=== PATIENT | female | born 1960 | race Caucasian/White ===

== ENCOUNTER 2017-02-17 20:07 | Emergency (ER) | payer MEDICAID ==
[2017-02-17 20:28] VITALS: BP 161/90; PULSE 71; RESP 17; TEMP 98.4; O2SAT 97
--- NOTE | 2017-02-17 20:39 | ED PDOC ---
Arrival/HPI - General Chief Complaint: Lower Extremity Problem/Injury Time Seen by Provider: 02/17/17 20:32 Historian: Patient - History of Present Illness Narrative History of Present Illness (Text): 02/17/17 20:57 Patient reports injuring her R 1st great toe yesterday and presents today to the ER because the nail has fallen off, reports no other complaints or injuries. Otherwise: (-) other injury, (-) numbness, (-) redness, (-) swelling. Past Medical History - Provider Review Nursing Documentation Reviewed: Yes - Reproductive Menopause: Yes - Cardiac Hx Hypertension: Yes - Pulmonary Hx Respiratory Disorders: No - Neurological HX Cerebrovascular Accident: Yes - HEENT Hx HEENT Disorder: No - Renal Hx Renal Disorder: No - Endocrine/Metabolic Hx Diabetes Mellitus Type 2: Yes - Hematological/Oncological Hx Blood Disorders: No - Integumentary Hx Dermatological Disorder: No - Musculoskeletal/Rheumatological Hx Musculoskeletal Disorders: Yes Other/Comment: RESIDUAL WEAKNESS L SIDE - Gastrointestinal Hx Constipation: Yes - Genitourinary/Gynecological Hx Genitourinary Disorders: No - Psychiatric Hx Psychophysiologic Disorder: No Hx Substance Use: No - Surgical History Hx Open Heart Surgery: Yes Family/Social History - Physician Review Nursing Documentation Reviewed: Yes Family/Social History: No Known Family HX Smoking Status: Never Smoked Hx Alcohol Use: No Hx Substance Use: No Allergies/Home Meds Allergies/Adverse Reactions: Allergies No Known Allergies Allergy (Verified 02/17/17 20:20) Home Medications: Home Meds Medication Instructions Recorded Confirmed Warfarin [Coumadin] 6 mg PO DAILY 02/17/17 02/17/17 Review of Systems - Review of Systems Constitutional: Normal. absent: Fatigue, Weight Change, Fevers Musculoskeletal: Normal, Arthralgias. absent: Back Pain, Neck Pain Skin: Normal. absent: Rash, Pruritis, Skin Lesions Physical Exam - Physical Exam Narrative Physical Exam (Text): 02/17/17 20:55 GENERAL APPEARANCE: Patient is awake, alert, oriented x 3, in no acute distress. SKIN: Warm, dry, (-) skin leasions or rashes. LOWER EXTREMITY: (-) Tenderness, (-) swelling, (-) erythema, (-) ecchymosis, (+ ) complete nail avulsion, (-) crepitus, (-) deformity. Tendon function intact. (-) distal neurovascular deficit. + 2 point discrimination. Remainder of foot, digits and ankle: (-) injury except. Vital Signs Temp Pulse Resp BP Pulse Ox 02/17/17 20:21 98.4 F 71 17 161/90 H 97 Medical Decision Making ED Course and Treatment: 02/17/17 20:53 56 yo F presents for nail avulsion to the R great toe which occurred yesterday and now the nail is completely off. Otherwise the patient has no other complaints. Clean dressing applied. Patient advised to keep toe clean and covered and to monitor for any signs for infection. Patient states she fully agrees with and understands discharge instructions. States that she agrees with the plan and disposition. Verbalized and repeated discharge instructions and plan. I have given the patient opportunity to ask any additional questions. Follow up with primary care physician in 1-2 days without fail. Advised to take otc pain medications prn for pain. Return to the emergency room at any time for any new or worsening symptoms. - PA / PATIENT CARRIER / Resident Statement MD/DO has reviewed & agrees with the documentation as recorded. Disposition/Present on Arrival - Present on Arrival Any Indicators Present on Arrival: No History of DVT/PE: No History of Uncontrolled Diabetes: No Urinary Catheter: No History of Decub. Ulcer: No History Surgical Site Infection Following: None - Disposition Have Diagnosis and Disposition been Completed?: Yes Diagnosis: Nail avulsion of toe Disposition: HOME/ ROUTINE Disposition Time: 20:38 Patient Plan: Discharge Patient Problems: Current Active Problems Problem Status Onset Nail avulsion of toe Acute Condition: GOOD Discharge Instructions (ExitCare): Toenail/Fingernail Removal (ED) Print Language: MALTESE Additional Instructions: Thank you for letting us take care of you today. You were treated for toenail avulsion. The emergency medical care you received today was directed at your acute symptoms. Return to the Emergency Department if your symptoms worsen, do not improve, or if you have any other problems. Please contact your doctor in 2 days for re-evaluation and follow up. Bring any paperwork you were given at discharge with you along with any medications you are taking to your follow up visit. Our treatment cannot replace ongoing medical care by a primary care provider (PCP) outside of the emergency department. Thank you for allowing the [facility] team to be part of your care today. Forms: WORK NOTE
== END 2017-02-17 21:00 | disposition home or self-care (01) ==
LOC: ED 20:07
DX: S91.201A Unspecified open wound of right great toe with damage to nail, initial encounter (principal); X58.XXXA Exposure to other specified factors, initial encounter; I10 Essential (primary) hypertension; E11.9 Type 2 diabetes mellitus without complications; Z86.73 Personal history of transient ischemic attack (TIA), and cerebral infarction without residual deficits